=== PATIENT | female | born 2000 | race Caucasian/White ===

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

== ENCOUNTER 2018-01-25 20:50 | Emergency (ER) | payer OTHER ==
[2018-01-25] MEDS ORDERED: methylPREDNISolone SOD SUCCI 125 MG/2 ML VIAL IV STA (21:00)
[2018-01-25] MEDS ORDERED: SODIUM CHLORIDE 0.9% 500 ML IV ONE (21:00)
[2018-01-25] MEDS ORDERED: FAMOTIDINE 20 MG/2 ML VIAL IV STA (21:00)
[2018-01-25] MEDS ORDERED: diphenhydrAMINE 50 MG/ML 1 ML VIAL IVP STA (21:00)
--- NOTE | 2018-01-25 21:16 | ED ---
Allergic Reaction HPI - General Chief complaint: Allergic Reaction Stated complaint: Allergic rection Time Seen by Provider: 01/25/18 21:00 Source: patient, RN notes reviewed Mode of arrival: ambulatory Limitations: no limitations - History of Present Illness Initial Comments: This is a 17-year-old female presents emergency Department chief complaint ALLERGIC reaction. Patient has multiple known food or drug ALLERGIES. Patient states that approximately 30 minutes prior arrival she was working at [employer] states that she started feeling itchy in her face. Patient states that she has some swelling around her eyes and her throat feels itchy. Patient does have an EpiPen but did not use it. Patient states she is not suicidal symptoms are progressing. She denies any shortness of breath denies any rash on her torso or extremities. Patient does not know what she was exposed to at this time. - Related Data Home Medications Medication Instructions Recorded Confirmed Albuterol Inhaler [Ventolin Hfa 2 puff INHALATION RT-Q4H PRN 08/18/16 08/18/16 Inhaler] Betamethasone Dipropionate 1 applic TOPICAL DAILY 08/18/16 08/18/16 [Diprolene AF 0.05% Cream] Norethindrone-Ethinyl Estrad 1 tab PO DAILY 08/18/16 08/18/16 [Alyacen 1-35-28 Tablet] Previous Rx's Medication Instructions Recorded ALPRAZolam [Xanax] 0.5 mg PO TID PRN #42 tab 08/21/16 DULoxetine HCL [Cymbalta] 30 mg PO DAILY #30 capsule. 08/21/16 diphenhydrAMINE [Benadryl] 50 mg PO QID PRN #20 capsule 01/25/18 predniSONE 50 mg PO DAILY #3 tab 01/25/18 Allergies Allergy/AdvReac Type Severity Reaction Status Date / Time Penicillins Allergy Unknown Unknown Verified 01/25/18 20:58 Sulfa (Sulfonamide Allergy Unknown Unknown Verified 01/25/18 20:58 Antibiotics) lactase [From Dairy Aid] Allergy Rash/Hives Verified 01/25/18 20:58 Milk Containing Products Allergy Unknown Verified 01/25/18 20:58 [Dairy] peanut Allergy Unknown Verified 01/25/18 20:58 shellfish derived [Shellfish] Allergy Unknown Verified 01/25/18 20:58 tree nut [Nut] Allergy Unknown Verified 01/25/18 20:58 Review of Systems ROS Statement: Those systems with pertinent positive or pertinent negative responses have been documented in the HPI. ROS Other: All systems not noted in ROS Statement are negative. Past Medical History Past Medical History: Asthma Additional Past Medical History / Comment(s): eczema History of Any Multi-Drug Resistant Organisms: None Reported Past Surgical History: Adenoidectomy, Tonsillectomy Past Psychological History: Anxiety, Depression Smoking Status: Never smoker Past Alcohol Use History: None Reported Past Drug Use History: None Reported General Exam Limitations: no limitations General appearance: alert, in no apparent distress Head exam: Present: atraumatic, normocephalic, normal inspection Eye exam: Present: normal appearance, PERRL, EOMI. Absent: scleral icterus, conjunctival injection, periorbital swelling ENT exam: Present: normal exam, mucous membranes moist Neck exam: Present: normal inspection, full ROM. Absent: tenderness, meningismus, lymphadenopathy Respiratory exam: Present: normal lung sounds bilaterally. Absent: respiratory distress, wheezes, rales, rhonchi, stridor Cardiovascular Exam: Present: regular rate, normal rhythm, normal heart sounds. Absent: systolic murmur, diastolic murmur, rubs, gallop, clicks Neurological exam: Present: alert, oriented X3, CN II-XII intact Skin exam: Present: warm, dry, intact, normal color. Absent: rash Course Vital Signs 01/25/18 20:56 Temperature 97.9 F Pulse Rate 86 Respiratory 16 Rate Blood Pressure 116/79 O2 Sat by Pulse 99 Oximetry - Reevaluation(s) Reevaluation #1: 01/25/18 22:06 Patient was reevaluated states that she feels improved she has no symptoms of throat swelling, itchiness. Medical Decision Making - Medical Decision Making 17-year-old female presented from it chief complaint ALLERGIC reaction. Patient was given IV Benadryl, Pepcid and Solu-Medrol. Patient has no food ALLERGIES. Patient discharged advised take Benadryl every 6 hours for mental 24 hours and retracts 3 days. Patient will follow-up with his CPAP. Patient has have EpiPen at home. Disposition Clinical Impression: Allergic reaction Disposition: HOME SELF-CARE Condition: Stable Instructions: General Allergic Reaction (ED) Additional Instructions: Please return to the Emergency Department if symptoms worsen or any other concerns. Prescriptions: diphenhydrAMINE [Benadryl] 50 mg PO QID PRN #20 capsule PRN Reason: ALLERGIC symptoms predniSONE 50 mg PO DAILY #3 tab Is patient prescribed a controlled substance at d/c from ED?: No Referrals: Ayden Woods MD [Primary Care Provider] - 1-2 days Time of Disposition: 22:08
[2018-01-25 22:19] VITALS: BP 109/59; PULSE 77; RESP 18; TEMP 98
== END 2018-01-25 22:19 | disposition home or self-care (01) ==
LOC: EC 20:50
DX: T78.40XA Allergy, unspecified, initial encounter (principal); Z88.0 Allergy status to penicillin; Z88.2 Allergy status to sulfonamides; Z91.011 Allergy to milk products; Z91.010 Allergy to peanuts; Z91.013 Allergy to seafood; Z91.018 Allergy to other foods; Z79.3 Long term (current) use of hormonal contraceptives; Z79.899 Other long term (current) drug therapy
CPT/HCPCS: 99283; 96374; 96375 ×2; J1200; J2930

== ENCOUNTER 2018-01-28 20:15 | Emergency (ER) | payer OTHER ==
[2018-01-28 20:21] VITALS: RESP 18
[2018-01-28] MEDS ORDERED: predniSONE 20 MG TAB PO STA (20:37)
[2018-01-28] MEDS ORDERED: diphenhydrAMINE 25 MG CAP PO STA (20:37)
[2018-01-28] MEDS ORDERED: FAMOTIDINE 20 MG TAB PO STA (20:37)
--- NOTE | 2018-01-28 22:02 | ED ---
Allergic Reaction HPI - General Chief complaint: Allergic Reaction Stated complaint: Allergic Reaction Time Seen by Provider: 01/28/18 20:33 Source: patient Mode of arrival: ambulatory Limitations: no limitations - History of Present Illness Initial Comments: Patient is a 17-year-old female who presents with a chief complaint of eye swelling and itching. The patient states that she thinks she is having ALLERGIC reaction to something. The patient states she was seen here on Sunday with similar symptoms. She was given prednisone, Benadryl, and Pepcid in the emergency department. At that time, her symptoms improved and she went home. She did not fill the prescriptions for prednisone and Pepcid. She returns today for the same symptoms. Patient does not identify the inciting incident. There are no aggravating or alleviating factors. Patient breath, trouble breathing, trouble swallowing. Reaction is localized to the eyes. - Related Data Home Medications Medication Instructions Recorded Confirmed Dextroamphetamine/Amphetamine 10 mg PO DAILY 01/28/18 01/28/18 [Adderall] Loratadine [Claritin] 10 mg PO DAILY PRN 01/28/18 01/28/18 Previous Rx's Medication Instructions Recorded EPINEPHrine [Epipen 2-Abldo] 0.3 mg IM ONCE PRN #2 units 01/28/18 Famotidine [Pepcid] 20 mg PO DAILY #5 tablet 01/28/18 predniSONE 60 mg PO DAILY #6 tab 01/28/18 Allergies Allergy/AdvReac Type Severity Reaction Status Date / Time Penicillins Allergy Unknown Unknown Verified 01/28/18 21:00 Sulfa (Sulfonamide Allergy Unknown Unknown Verified 01/28/18 21:00 Antibiotics) lactase [From Dairy Aid] Allergy Rash/Hives Verified 01/28/18 21:00 Milk Containing Products Allergy Unknown Verified 01/28/18 21:00 [Dairy] peanut Allergy Unknown Verified 01/28/18 21:00 shellfish derived [Shellfish] Allergy Unknown Verified 01/28/18 21:00 tree nut [Nut] Allergy Unknown Verified 01/28/18 21:00 Review of Systems ROS Statement: Those systems with pertinent positive or pertinent negative responses have been documented in the HPI. ROS Other: All systems not noted in ROS Statement are negative. Skin: Reports: pruritus Past Medical History Past Medical History: Asthma Additional Past Medical History / Comment(s): eczema History of Any Multi-Drug Resistant Organisms: None Reported Past Surgical History: Adenoidectomy, Tonsillectomy Past Psychological History: Anxiety, Depression Smoking Status: Never smoker Past Alcohol Use History: None Reported Past Drug Use History: None Reported General Exam Limitations: no limitations General appearance: alert, in no apparent distress Head exam: Present: atraumatic, normocephalic Eye exam: Present: conjunctival injection, periorbital swelling Pupils: Present: normal accommodation. Absent: unequal ENT exam: Present: normal exam, normal oropharynx, mucous membranes moist Neck exam: Present: normal inspection Respiratory exam: Present: normal lung sounds bilaterally. Absent: respiratory distress, wheezes, rales Cardiovascular Exam: Present: regular rate, normal rhythm GI/Abdominal exam: Present: soft. Absent: distended, tenderness Rectal exam: Present: deferred Extremities exam: Present: normal inspection Back exam: Present: normal inspection Neurological exam: Present: alert, oriented X3 Psychiatric exam: Present: normal affect, normal mood Skin exam: Present: warm, dry, intact Course Vital Signs 01/28/18 01/28/18 20:18 21:15 Temperature 97.9 F Pulse Rate 91 81 Respiratory 18 18 Rate Blood Pressure 122/69 124/86 O2 Sat by Pulse 98 100 Oximetry Medical Decision Making - Medical Decision Making Patient presents with chief complaint of an ALLERGIC reaction. On initial evaluation, vitals are stable, patient is in no acute distress. Reaction appears to be limited to swelling of the eyes. Patient denies any shortness of breath, trouble swallowing, trouble breathing. Patient was given Benadryl, steroids, and Pepcid. Over a period of observation in the emergency department , the patient's symptoms began to improve. At this time, she is stable for discharge. Patient was again given prescriptions for prednisone, and Pepcid. She states she has Benadryl at home. Patient states she has EpiPen at home however she was written a prescription in case she can't find them. Conversation with the patient reveals that she has been using eczema cream mainly around her eyes and this seems to be consistent with her reaction. Patient was instructed to stop using that cream. At this time, patient is stable, she is appropriate for discharge and outpatient management. Patient was given exposes signs and symptoms that should prompt return visit to the emergency department. Patient was instructed on use of an EpiPen. Disposition Clinical Impression: Urticaria, Allergic reaction Disposition: HOME SELF-CARE Condition: Good Prescriptions: EPINEPHrine [Epipen 2-Baldo] 0.3 mg IM ONCE PRN #2 units PRN Reason: Allergic Reaction Famotidine [Pepcid] 20 mg PO DAILY #5 tablet predniSONE 60 mg PO DAILY #6 tab Is patient prescribed a controlled substance at d/c from ED?: No Referrals: Ayden Woods MD [Primary Care Provider] - 1-2 days
[2018-01-28 22:13] VITALS: BP 118/73; PULSE 75; TEMP 98.4
== END 2018-01-28 22:13 | disposition home or self-care (01) ==
LOC: EC 20:15
DX: L50.0 Allergic urticaria (principal); Z79.899 Other long term (current) drug therapy; Z88.0 Allergy status to penicillin; Z88.2 Allergy status to sulfonamides; Z91.010 Allergy to peanuts; Z91.011 Allergy to milk products; Z91.013 Allergy to seafood; Z91.018 Allergy to other foods
CPT/HCPCS: 99283; J7512

== ENCOUNTER → 2018-02-26 | Outpatient (CLI) | payer OTHER ==
--- NOTE | 2018-02-26 08:07 | US ---
EXAMINATION TYPE: US abdomen complete DATE OF EXAM: 02/26/2018 COMPARISON: CT abdomen and pelvis 2007. CLINICAL HISTORY: R94.5 Abnormal results of liver function studies. abnormal labs. Lower abdomen idalia n. NPO EXAM MEASUREMENTS: Liver Length: 13.2 cm Gallbladder Wall: 0.2 cm CBD: 0.3 cm CHD: 0.3 cm Spleen: 10.4 cm Right Kidney: Unable to measure due to bowel gas Left Kidney: 10.6 x 3.5 x 5.0 cm Pancreas: wnl Liver: wnl Gallbladder: wnl, folds seen LLD Evidence for sonographic Álvarez's sign: neg CBD: wnl CHD: wnl Spleen: wnl Right Kidney: Inferior pole obscured by bowel gas, scanned both supine and LLD Left Kidney: wnl Upper IVC: wnl Abd Aorta: Mid portion obscured by overlying bowel gas, portions seen appear wnl The liver is homogenous. The intrahepatic portion of the IVC and visualized proximal, mid, or distal abdominal aorta are within normal limits. There is no evidence of cholelithiasis. Common bile duct is unremarkable. The visualized portions of the pancreas are homogenous. The spleen is unremarkabl e. Kidneys are symmetric and free of hydronephrosis. No renal lesions are seen. IMPRESSION: No worrisome intrahepatic mass or intrahepatic ductal dilatation is identified. Slightly suboptimal study without suspicious findings seen.
== END | disposition home or self-care (01) ==
LOC: RADUSWWP 07:27
PROVIDERS: ATTEND Family Medicine
DX: R94.5 Abnormal results of liver function studies (principal)
CPT/HCPCS: 76700

== ENCOUNTER 2018-03-08 13:27 | Inpatient (IN) | payer MEDICAID, OTHER ==
[2018-03-08 15:15] LABS: Amphetamine Screen,Urine Not Detected (NotDetected); Barbiturate Screen,Urine Not Detected (NotDetected); Benzodiazepines Screen,Urine Detected (NotDetected); Cocaine Screen,Urine Not Detected (NotDetected); Methadone Screen, Urine Not Detected (NotDetected); Opiate Screen,Urine Not Detected (NotDetected); Oxycodone Screen, Urine Not Detected (NotDetected); Phencyclidine Screen,Urine Not Detected (NotDetected); Tricyclic Antidepressant,Urine Not Detected (NotDetected); Urn Cannabinoid Scrn Not Detected (NotDetected)
--- NOTE | 2018-03-08 15:34 | ED ---
General Adult HPI - General Chief complaint: Psychiatric Symptoms Stated complaint: Mental Health Time Seen by Provider: 03/08/18 14:48 Source: patient, RN notes reviewed Mode of arrival: ambulatory Limitations: no limitations - History of Present Illness Initial comments: Patient's a 17-year-old female presented to the emergency room today with her mother, with a chief complaint of needing a psychiatric evaluation. Patient does admit that her last 3 months she's been having thoughts of suicide. She states that currentlydoes not have a specific plan but in the past when she's been more and a "break" she is thought about just taking a bunch of pills. She denies any homicidal thoughts or plans. Denies any visual or auditory hallucinations. Denies any other physical complaints. Patient denies any recent fever, chills, shortness of breath, chest pain, back pain, abdominal pain , nausea or vomiting, numbness or tingling, headaches or visual changes, or any other complaints. - Related Data Home Medications Medication Instructions Recorded Confirmed Loratadine [Claritin] 10 mg PO DAILY PRN 01/28/18 03/08/18 ALPRAZolam [Xanax] 0.5 mg PO BID PRN 03/08/18 03/08/18 Albuterol Inhaler [Ventolin Hfa 1 - 2 puff INHALATION RT-Q6H PRN 03/08/18 Inhaler] Previous Rx's Medication Instructions Recorded EPINEPHrine [Epipen 2-Baldo] 0.3 mg IM ONCE PRN #2 units 01/28/18 Allergies Allergy/AdvReac Type Severity Reaction Status Date / Time Penicillins Allergy Unknown Unknown Verified 03/08/18 14:58 Sulfa (Sulfonamide Allergy Unknown Unknown Verified 03/08/18 14:58 Antibiotics) lactase [From Dairy Aid] Allergy Rash/Hives Verified 03/08/18 14:58 Milk Containing Products Allergy Unknown Verified 03/08/18 14:58 [Dairy] peanut Allergy Unknown Verified 03/08/18 14:58 shellfish derived [Shellfish] Allergy Unknown Verified 03/08/18 14:58 tree nut [Nut] Allergy Unknown Verified 03/08/18 14:58 Review of Systems ROS Statement: Those systems with pertinent positive or pertinent negative responses have been documented in the HPI. ROS Other: All systems not noted in ROS Statement are negative. Past Medical History Past Medical History: Asthma Additional Past Medical History / Comment(s): eczema History of Any Multi-Drug Resistant Organisms: None Reported Past Surgical History: Adenoidectomy, Tonsillectomy Past Psychological History: Anxiety, Depression Smoking Status: Never smoker Past Alcohol Use History: None Reported Past Drug Use History: None Reported General Exam - General Exam Comments Initial Comments: General: The patient is awake and alert, in no distress, and does not appear acutely ill. Eye: Pupils are equal, round and reactive to light, extra-ocular movements are intact. No nystagmus. There is normal conjunctiva bilaterally. No signs of icterus. Ears, nose, mouth and throat: There are moist mucous membranes and no oral lesions. Neck: The neck is supple, there is no tenderness or JVD. Cardiovascular: There is a regular rate and rhythm. No murmur, rub or gallop is appreciated. Respiratory: Lungs are clear to auscultation, respirations are non-labored, breath sounds are equal. No wheezes, stridor, rales, or rhonchi. Musculoskeletal: Normal ROM, no tenderness. Strength 5/5. Sensation intact. Neurological: A&O x 3. CN II-XII intact, There are no obvious motor or sensory deficits. Coordination appears grossly intact. Speech is normal. Skin: Skin is warm and dry and no rashes or lesions are noted. Psychiatric: Cooperative Limitations: no limitations Course Vital Signs 03/08/18 13:44 Temperature 98.2 F Pulse Rate 102 H Respiratory 18 Rate Blood Pressure 107/75 O2 Sat by Pulse 99 Oximetry Medical Decision Making - Medical Decision Making Patient seen in the emergency room by [facility] and recommended admission. Patient is willing to sign herself in. - Lab Data Lab Results 03/08/18 03/08/18 Range/Units 14:57 14:57 Urine HCG, Qual Not Detected (Not Detectd) Urine Opiates Screen Not Detected (NotDetected) Ur Oxycodone Screen Not Detected (NotDetected) Urine Methadone Screen Not Detected (NotDetected) Ur Propoxyphene Screen Not Detected (NotDetected) Ur Barbiturates Screen Not Detected (NotDetected) U Tricyclic Antidepress Not Detected (NotDetected) Ur Phencyclidine Scrn Not Detected (NotDetected) Ur Amphetamines Screen Not Detected (NotDetected) U Methamphetamines Scrn Not Detected (NotDetected) U Benzodiazepines Scrn Detected H (NotDetected) Urine Cocaine Screen Not Detected (NotDetected) U Marijuana (THC) Screen Not Detected (NotDetected) Disposition Clinical Impression: Suicidal ideation Disposition: TRANSFER TO PSYCH HOSP/UNIT Condition: Stable Is patient prescribed a controlled substance at d/c from ED?: No Referrals: Ayden Woods MD [Primary Care Provider] - 1-2 days
[2018-03-08 18:13] VITALS: BMI 24.4
[2018-03-08] MEDS ORDERED: ACETAMINOPHEN TAB 325 MG TAB PO PRN (21:00)
[2018-03-08] MEDS ORDERED: MAGNESIUM HYDROXIDE 2,400 MG/10 ML CUP PO PRN (21:00)
[2018-03-08] MEDS ORDERED: LORazepam 0.5 MG TAB PO PRN (21:00)
[2018-03-08] MEDS ORDERED: MAG HYDROX/AL HYDROX/SIMETH 30 ML CUP PO PRN (21:00)
[2018-03-08] MEDS ORDERED: ALBUTEROL INHALER 60 PUFF/8 GM INHALER INHALATION PRN (21:02)
[2018-03-08] MEDS ORDERED: LORATADINE 10 MG TAB PO PRN (21:02)
[2018-03-09 09:39] LABS: ALT 27 U/L (9-52); AST 25 U/L (14-36); Albumin 4.5 g/dL (3.5-5.0); Alkaline Phosphatase 59 U/L (38-126); Anion Gap 9 mmol/L; Blood Urea Nitrogen 7 mg/dL (7-17); Calcium 9.7 mg/dL (8.4-10.2); Carbon Dioxide 25 mmol/L (22-30); Chloride 107 mmol/L (98-107); Glucose 84 mg/dL (74-99); Sodium 141 mmol/L (137-145); Total Bilirubin 0.8 mg/dL (0.2-1.3); Total Protein 7.7 g/dL (6.3-8.2)
[2018-03-09 09:45] LABS: Basophils % (A) 1 %; Eosinophils # (A) 0.4 k/uL (0-0.7); Eosinophils % (A) 10 %; HGB 13.3 gm/dL (11.4-16.0); Lymphocytes # (A) 1.6 k/uL (1.0-4.8); Lymphocytes % (A) 39 %; MCH 28.5 pg (25.0-35.0); MCHC 32.5 g/dL (31.0-37.0); MCV 87.5 fL (80.0-100.0); Mean Platelet Volume 8.6; Monocytes # (A) 0.4 k/uL (0-1.0); Monocytes % (A) 10 %; Neutrophils # (A) 1.6 k/uL (1.3-7.7); Neutrophils % (A) 37 %; Platelet Count 142 k/uL (150-450); RBC 4.69 m/uL (3.80-5.40); RDW 12.6 % (11.5-15.5); WBC 4.2 k/uL (4.0-11.0)
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
[2018-03-09 15:45] LABS: Appearance,Urine Cloudy (Clear); Bacteria,Urine Rare /hpf; Bilirubin,Urine Negative (Negative); Blood,Urine Trace (Negative); Color,Urine Yellow; Glucose,Urine (UA) Negative (Negative); Ketones,Urine Negative (Negative); Leukocyte Esterase,Urine Small (Negative); Mucus,Urine Many /hpf; Nitrite,Urine Negative (Negative); Protein,Urine Trace (Negative); RBC,Urine 3 /hpf (0-5); Specific Gravity,Urine 1.012 (1.001-1.035); Squamous Epithelial Cell,Urine 4 /hpf (0-4); Urobilinogen,Urine <2.0 mg/dL (<2.0); WBC,Urine 6 /hpf (0-5)
--- NOTE | 2018-03-09 20:41 | CONS ---
CONSULTATION DATE OF CONSULTATION: 03/09/2018. REASON FOR CONSULTATION: Medical management and H and P expressed by Dr. Jimenez. CONSULTATION: This is a 17-year-old patient who follows with Dr. Woods. The patient has a diagnosis of major depression, had been taking medications, but decided to stop it about a year ago. The patient is getting more and more depressed, does not feel like doing much. It has affected her appetite a bit. Sleep pattern is affected, feeling run down. The patient presented to the ER. She has been having suicidal ideation. Denies any obvious hallucinations. Denies any infectious complaints. She was admitted to the psych unit. The patient was started on Zyprexa and Zoloft. REVIEW OF SYSTEMS: CONSTITUTIONAL: Tired. HEENT: None. RESPIRATORY: None. CARDIOVASCULAR: None. GASTROINTESTINAL: None. GENITOURINARY: None. MUSCULOSKELETAL: None. DERMATOLOGICAL: Eczema. HEMATOLOGIC: None. LYMPHATIC: None. PSYCHIATRY: Depression, anxiety. NEUROLOGICAL: None. PAST MEDICAL HISTORY: Major depression, asthma, eczema. PAST SURGICAL HISTORY: Adenoidectomy, tonsillectomy. SOCIAL HISTORY: No smoking. No alcohol. No recreational drugs. The patient lives with her mother, going to local [employer] for early education. FAMILY HISTORY: Thyroid disorder and Seema's disease. HOME MEDICATIONS: 1. Ventolin HFA 1 or 2 puffs every 6 hours p.r.n. 2. Claritin 10 mg daily p.r.n. 3. EpiPen p.r.n. 4. Xanax 0.5 p.o. b.i.d. p.r.n. ALLERGIES: To PENICILLIN, SULFA, LACTOSE, MILK, PEANUTS, SHELLFISH, TREE NUTS. EXAMINATION: VITAL SIGNS: On presentation, temperature 98.2 pulse 102, respirations 18, blood pressure 107/75, pulse 99% on room air. GENERAL APPEARANCE: Average built, sitting up, a bit anxious-appearing. EYES: Pupils equal. Conjunctivae normal. HEENT: External appearance of nose and ears normal. Oral cavity normal. NECK: JVD not raised. Mass not palpable. RESPIRATORY: Effort normal. LUNGS: Fair air entry. CARDIOVASCULAR: First and second heart sounds normal. No edema. ABDOMEN: Soft, nontender. Liver and spleen not palpable. LYMPHATIC: No lymph node palpable in neck or axillae. PSYCHIATRY: Alert and oriented x3. Mood and affect anxious-appearing. NEUROLOGICAL: Pupils equal. Cranial nerves grossly intact. Power and sensation grossly intact. INVESTIGATIONS: White count 4.2, hemoglobin 13.3. Potassium 4.0, BUN and creatinine are normal. Urine hCG not detected. Urine drug screen positive for benzodiazepine. ASSESSMENT: 1. Intermittent asthma, controlled. 2. Chronic eczema/atopic dermatitis, controlled. 3. Panic attacks with agoraphobia. 4. Major depression, recurrent. PLAN: I had a lengthy talk with the patient, talked about different modalities to keep herself busy. The patient does do yoga and meditation and does try to do frequently. She was taught this at [facility]. Her asthma is otherwise well controlled and may use albuterol p.r.n. Upon discharge, should follow up with her family doctor. Thank you, Dr. Jimenez. MIRANDA / LIGIA: [id number] /
[2018-03-09] MEDS ORDERED: OLANZapine 2.5 MG TAB PO SCH (21:00)
[2018-03-10] MEDS: SERTRALINE 25 MG TAB PO SCH (09:10)
--- NOTE | 2018-03-10 15:35 | P.PN ---
Progress Note - Text Progress Note Date: 03/10/18 IDENTIFICATION DATA: 17 -year-old male admitted through emergency department voluntarily for depression, anxiety and suicidal ideations. INTERVAL HISTORY: The patient has been cooperative with medication as well as other treatment modalities, appropriately socializing with peers. Today agreed with being interviewed; Reports feeling better today. denied side effects with medications, Reports good sleep and appetite. MENTAL STATUS EXAMINATION: The patient is alert and oriented 3 and in no apparent distress. Motor and speech behaviors are within normal limits. Mood is "BETTER" and affect is appropriate. thought processes linear thought content is negative for suicidal or homicidal ideation. Denies current auditory or visual hallucinations. insight and judgment are improving. ASSESSMENT AND PLAN: Will increase the dose of her zyprexa to 5mg po qhs. Continue Zoloft and titrate as needed.
[2018-03-10] MEDS: OLANZapine 5 MG TAB PO SCH (20:18)
[2018-03-11] MEDS: SERTRALINE 25 MG TAB PO SCH (08:28)
--- NOTE | 2018-03-11 13:52 | P.PN ---
Progress Note - Text Progress Note Date: 03/11/18 Interval History: Patient is a 17-year-old female who is admitted secondary to increasing symptoms of depression and anxiety as well as suicidal thoughts. Patient states that over the last 3 months her symptoms have increased and she is been having panic attacks 3 or more times a day, has not been leaving the house has not been talking with anyone and cannot identify a precipitant. Patient states that she had suicidal thoughts with a plan to overdose. Patient states that she is not been on medication for some time she thinks about a year and her last medication was Cymbalta. She hasn't been seen in over one year for therapy and was being seen at [facility]. Patient states that she had a overdose attempt when she was 10 years of age. Patient states that she's been in the hospital and restarted on medications her sleep has improved is been a decrease in her anxiety as well as she is no longer feeling suspicious and paranoid. She would not longer reports any suicidal thoughts. Mental Status: Appearance/Attitude: Patient is casually dressed, makes good eye contact and was cooperative. Behavior: Patient does not exhibit any psychomotor agitation or retardation. Speech/Language: Patient's speech was spontaneous of normal volume and rhythm and she is coherent Thought Process: Patient was goal-directed there is no evidence of loose association or flight of ideas Thought Content: Patient denied any auditory or visual hallucinations no paranoid or delusional ideation was elicited. Patient reports that she is feeling less anxious and sleeping well. She and I discussed her relationships with friends and how it is an all or none relationship, either liking them intensely or disliking them intensely. Patient states she's been attending groups and activities. Suicidal/Homicidal Ideation: Patient denies any current suicidal or homicidal ideation Sensorium/Cognition: Patient is alert and oriented to person, place, and time and her Recent and remote memory are grossly intact Mood/Affect: Patient's mood is slightly anxious and depressed and her affect is appropriate to her mood Insight/Judgment: Patient's insight and judgment are fair Assessment: Patient has been attending groups and activities states that her sleep is improving and that she is less anxious and less paranoid. Patient continues to feel depressed but no longer is having any suicidal thoughts. She reports that she is tolerating the medications well without side effects. Plan: Patient continue on Zyprexa 5 mg at bedtime and will increase her Zoloft to 50 mg daily to target her symptoms of depression and anxiety. Patient continues to require hospitalization to further stabilize her mood.
[2018-03-11] MEDS: OLANZapine 5 MG TAB PO SCH (20:24)
[2018-03-12] MEDS: SERTRALINE 50 MG TAB PO SCH (08:54)
--- NOTE | 2018-03-12 12:37 | P.PN ---
Progress Note - Text Progress Note Date: 03/12/18 Interval History: Patient is a 17-year-old female who reports that she is feeling more optimistic today and states that the family meeting with her mother went well yesterday and that they are both considering going to counseling together to improve their relationship. She states that she is feeling less anxious and notices this because she is not fidgeting with her hands when she is sitting. She states that she has been eating fairly well but has been feeling slightly lightheaded in the morning. She says that she is sleeping at night and notices that her depression is improving. She reported no suicidal thoughts Mental Status: Appearance/Attitude: Patient is casually dressed, makes good eye contact and was cooperative. Behavior: Patient does not exhibit any psychomotor agitation or retardation. Speech/Language: Patient's speech was spontaneous of normal volume and rhythm and she is coherent. Thought Process: Patient is goal-directed there is no evidence of loose association or flight of ideas Thought Content: Patient denies any auditory or visual hallucinations no delusions or paranoid ideation or elicited. Patient reports that she is feeling more optimistic, states that she is feeling less anxious and notices that she is not fidgeting and playing with her hands when she is sitting in groups. She states that she slept well last night and her appetite is good. Patient does complain of feeling somewhat lightheaded in the morning. Suicidal/Homicidal Ideation: Patient denies any current suicidal or homicidal ideation Sensorium/Cognition: She is alert and oriented to person, place, and time and her recent and remote memory are grossly intact Mood/Affect: Patient's mood is less depressed and less anxious and her affect is appropriate to her mood Insight/Judgment: Patient's insight and judgment are fair Assessment: Patient states that the family meeting went well and she and her mother considering going to counseling together to improve the relationship. Patient notices that she is feeling calm her and not fidgeting as much when she is sitting as well as feeling more optimistic about the future. Patient states that she's been attending groups and activities. She does complain of some lightheadedness in the morning and her blood pressure is slightly lower than it was on admission. She reported no other side effects from the medications and feels they've been beneficial. Plan: Patient continue on Zoloft 50 mg daily and Zyprexa 5 mg at bedtime. Should the patient continues to report feeling lightheaded I discussed with her decreasing the Zyprexa to 2-1/2 mg at bedtime. Patient and I discussed discharge on and she was agreeable with this plan.
[2018-03-12] MEDS: OLANZapine 5 MG TAB PO SCH (20:50)
[2018-03-13 07:33] VITALS: TEMP 98
[2018-03-13] MEDS: SERTRALINE 50 MG TAB PO SCH (07:54)
--- NOTE | 2018-03-13 16:46 | P.PN ---
Progress Note - Text Progress Note Date: 03/13/18 Interval History: Patient is a 17-year-old female who was seen this morning she states that she continues to feel optimistic, states she has not had any panic attacks and her anxiety level is much reduced. She states that she continues to not have to fidget with her hands. Patient states that she is sleeping well and that she and her mother have continued to have good conversations on the phone. She stated that she is not feeling as lightheaded or dizzy this morning and does not feel that the Zyprexa and needs to be adjusted. She reports no further suicidal thoughts and states she is much less irritable. Mental Status: Appearance/Attitude: Patient is casually dressed, makes good eye contact and was cooperative. Behavior: Patient does not exhibit any psychomotor agitation or retardation. Speech/Language: Patient's speech is spontaneous of normal volume and rhythm and she is coherent Thought Process: Patient is goal-directed there is no evidence of loose association or flight of ideas Thought Content: Patient denies any auditory or visual hallucinations and no delusions or paranoid ideation or elicited. Patient states that she's feeling optimistic much less irritable and has not had any panic attacks while on the unit and is now longer fidgeting with her hands. She states that she is sleeping well and eating well. She reported that she is no longer feeling dizzy and lightheaded and doesn't think that the medications need to be adjusted. Suicidal/Homicidal Ideation: Patient denies any current suicidal or homicidal ideation Sensorium/Cognition: Patient is alert and oriented to person, place, and time and her recent and remote memory are grossly intact. Mood/Affect: Patient states her mood is more optimistic she is no longer feeling irritable or anxious and her affect is appropriate Insight/Judgment: Patient's insight and judgment are intact Assessment: Patient reports that she is doing much better no longer feeling depressed is more optimistic and states that she has not had any panic attacks and is no longer feeling anxious. Patient states side effect of dizziness and lightheadedness have disappeared this morning and she feels that the Zyprexa is been helpful and does not wish to be changed. Patient states she is sleeping and eating well and no longer has any suicidal thoughts. Plan: Patient will continue on Zoloft 50 mg and Zyprexa 5 mg at bedtime she and I discussed discharge for tomorrow and the patient was agreeable with the plan.
[2018-03-14 07:18] VITALS: BP 101/67; PULSE 115; RESP 18
[2018-03-14] MEDS: SERTRALINE 50 MG TAB PO SCH (08:44)
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
== END 2018-03-14 17:13 | disposition home or self-care (01) | DRG 885 ==
LOC: EC 13:27 → 3MHU 17:27
PROVIDERS: ADMIT Psychiatry & Neurology Psychiatry; ATTEND Psychiatry & Neurology Psychiatry
DX: F33.1 Major depressive disorder, recurrent, moderate (principal); R45.851 Suicidal ideations; Z91.5 Personal history of self-harm; J45.20 Mild intermittent asthma, uncomplicated; L20.9 Atopic dermatitis, unspecified; N80.9 Endometriosis, unspecified; B00.9 Herpesviral infection, unspecified; F40.01 Agoraphobia with panic disorder; Z79.899 Other long term (current) drug therapy; Z91.419 Personal history of unspecified adult abuse; Z88.2 Allergy status to sulfonamides; Z91.011 Allergy to milk products; Z91.018 Allergy to other foods; Z91.010 Allergy to peanuts; Z88.0 Allergy status to penicillin; Z91.013 Allergy to seafood; Z65.3 Problems related to other legal circumstances; Z81.8 Family history of other mental and behavioral disorders
CPT/HCPCS: 80053; 80306; 81001; 81025; 82075; 84443; 85025; 99285

== ENCOUNTER 2018-09-25 19:16 | Emergency (ER) | payer BC, OTHER ==
[2018-09-25 19:33] VITALS: BP 108/61; RESP 22; TEMP 98.4
[2018-09-25] MEDS ORDERED: IPRATROPIUM-ALBUTEROL 3 ML NEB INHALATION STA (19:42)
[2018-09-25] MEDS ORDERED: methylPREDNISolone SOD SUCCI 125 MG/2 ML VIAL IV STA (19:42)
[2018-09-25] MEDS ORDERED: SODIUM CHLORIDE 0.9% 1,000 ML IV ONE (19:42)
--- NOTE | 2018-09-25 19:49 | ED ---
URI HPI - General Chief Complaint: Upper Respiratory Infection Stated Complaint: Poss pneumonia Time Seen by Provider: 09/25/18 19:35 Source: patient, RN notes reviewed Mode of arrival: ambulatory Limitations: no limitations - History of Present Illness Initial Comments: 18-year-old female presents emergency Department chief complaint cough congestion. Patient states symptoms started over the last 2 days. She reports no fever at home. She has tried multiple treatments today with minimal relief. She does have underlying asthma but states that she has not had any issues and she was a teenager. Patient states her cough is mildly productive she does admit to some sinus congestion sinus pressure. No sick contacts. Patient denies any joint pain, or stiffness denies neck pain or neck stiffness. - Related Data Home Medications Medication Instructions Recorded Confirmed Loratadine [Claritin] 10 mg PO DAILY PRN 01/28/18 09/25/18 Albuterol Inhaler [Ventolin Hfa 1 - 2 puff INHALATION RT-Q6H PRN 03/08/18 Inhaler] Previous Rx's Medication Instructions Recorded Azithromycin [Zithromax Z-pack] 0 mg PO DIRECTED #1 pack 09/25/18 predniSONE 50 mg PO DAILY #5 tab 09/25/18 Allergies Allergy/AdvReac Type Severity Reaction Status Date / Time Penicillins Allergy Unknown Rash/Hives Verified 09/25/18 20:15 Sulfa (Sulfonamide Allergy Unknown Rash/Hives Verified 09/25/18 20:15 Antibiotics) lactase [From Dairy Aid] Allergy Rash/Hives Verified 09/25/18 20:15 Milk Containing Products Allergy Rash/Hives Verified 09/25/18 20:15 [Dairy] peanut Allergy Anaphylaxis Verified 09/25/18 20:15 shellfish derived [Shellfish] Allergy Anaphylaxis Verified 09/25/18 20:15 tree nut [Nut] Allergy Anaphylaxis Verified 09/25/18 20:15 Review of Systems ROS Statement: Those systems with pertinent positive or pertinent negative responses have been documented in the HPI. ROS Other: All systems not noted in ROS Statement are negative. Past Medical History Past Medical History: Asthma Additional Past Medical History / Comment(s): eczema, recent kidney and liver tests due to abnormal labs and pain. History of Any Multi-Drug Resistant Organisms: None Reported Past Surgical History: Adenoidectomy, Tonsillectomy Additional Past Surgical History / Comment(s): D&C Past Anesthesia/Blood Transfusion Reactions: No Reported Reaction Past Psychological History: Anxiety, Depression Smoking Status: Never smoker Past Alcohol Use History: None Reported Past Drug Use History: None Reported - Past Family History Mother Family Medical History: Thyroid Disorder Additional Family Medical History / Comment(s): Seema's disease. Father Family Medical History: Coronary Artery Disease (CAD) General Exam Limitations: no limitations General appearance: alert, in no apparent distress Head exam: Present: atraumatic, normocephalic, normal inspection Eye exam: Present: normal appearance, PERRL, EOMI. Absent: scleral icterus, conjunctival injection, periorbital swelling ENT exam: Present: normal exam, normal oropharynx, mucous membranes moist, TM's normal bilaterally, normal external ear exam Neck exam: Present: normal inspection. Absent: tenderness, meningismus, lymphadenopathy Respiratory exam: Present: wheezes. Absent: normal lung sounds bilaterally, respiratory distress, rales, stridor Cardiovascular Exam: Present: normal rhythm, tachycardia, normal heart sounds. Absent: systolic murmur, diastolic murmur, rubs, gallop, clicks Neurological exam: Present: alert, oriented X3, CN II-XII intact Skin exam: Present: warm, dry, intact, normal color. Absent: rash Course Vital Signs 09/25/18 09/25/18 09/25/18 19:28 20:18 20:33 Temperature 98.4 F Pulse Rate 124 H 120 H 120 H Respiratory 22 Rate Blood Pressure 108/61 O2 Sat by Pulse 98 Oximetry Medical Decision Making - Medical Decision Making 18-year-old female presented for shortness breath, cough and congestion influenza, chest x-ray unremarkable. Patient has acute asthmatic bronchitis. Patient will be discharged with antiemetics and steroids. Patient continue albuterol treatment at home. Return parameters discussed. - Lab Data Result diagrams: 09/25/18 20:00 09/25/18 20:00 Lab Results 09/25/18 09/25/18 09/25/18 Range/Units 20:00 20:00 20:00 WBC 8.0 (4.0-11.0) k/uL RBC 4.57 (3.80-5.40) m/uL Hgb 13.0 (11.4-16.0) gm/dL Hct 39.9 (34.0-46.0) % MCV 87.4 (80.0-100.0) fL MCH 28.5 (25.0-35.0) pg MCHC 32.6 (31.0-37.0) g/dL RDW 13.3 (11.5-15.5) % Plt Count 188 (150-450) k/uL Neutrophils % 60 % Lymphocytes % 19 % Monocytes % 6 % Eosinophils % 13 % Basophils % 1 % Neutrophils # 4.8 (1.3-7.7) k/uL Lymphocytes # 1.5 (1.0-4.8) k/uL Monocytes # 0.5 (0-1.0) k/uL Eosinophils # 1.0 H (0-0.7) k/uL Basophils # 0.1 (0-0.2) k/uL Sodium 140 (137-145) mmol/L Potassium 3.9 (3.5-5.1) mmol/L Chloride 108 H (98-107) mmol/L Carbon Dioxide 23 (22-30) mmol/L Anion Gap 9 mmol/L BUN 5 L (7-17) mg/dL Creatinine 0.60 (0.52-1.04) mg/dL Est GFR (CKD-EPI)AfAm >90 (>60 ml/min/1.73 sqM) Est GFR (CKD-EPI)NonAf >90 (>60 ml/min/1.73 sqM) Glucose 80 (74-99) mg/dL Calcium 9.3 (8.4-10.2) mg/dL Influenza Type A RNA Not Detected (Not Detectd) Influenza Type B (PCR) Not Detected (Not Detectd) Disposition Clinical Impression: Asthmatic bronchitis Disposition: HOME SELF-CARE Condition: Stable Instructions (If sedation given, give patient instructions): Upper Respiratory Infection (ED) Additional Instructions: Please return to the Emergency Department if symptoms worsen or any other concerns. Prescriptions: Azithromycin [Zithromax Z-pack] 0 mg PO DIRECTED #1 pack predniSONE 50 mg PO DAILY #5 tab Is patient prescribed a controlled substance at d/c from ED?: No Referrals: Ayden Woods MD [Primary Care Provider] - 1-2 days Time of Disposition: 21:28
[2018-09-25 20:15] LABS: Basophils # (A) 0.1 k/uL (0-0.2); Basophils % (A) 1 %; Eosinophils % (A) 13 %; HCT 39.9 % (34.0-46.0); Lymphocytes # (A) 1.5 k/uL (1.0-4.8); Lymphocytes % (A) 19 %; MCH 28.5 pg (25.0-35.0); MCHC 32.6 g/dL (31.0-37.0); MCV 87.4 fL (80.0-100.0); Mean Platelet Volume 7.6; Monocytes # (A) 0.5 k/uL (0-1.0); Monocytes % (A) 6 %; Neutrophils # (A) 4.8 k/uL (1.3-7.7); Neutrophils % (A) 60 %; Platelet Count 188 k/uL (150-450); RBC 4.57 m/uL (3.80-5.40); RDW 13.3 % (11.5-15.5)
[2018-09-25 20:25] LABS: Anion Gap 9 mmol/L; Blood Urea Nitrogen 5 mg/dL (7-17); Calcium 9.3 mg/dL (8.4-10.2); Carbon Dioxide 23 mmol/L (22-30); Chloride 108 mmol/L (98-107); Glucose 80 mg/dL (74-99); Potassium 3.9 mmol/L (3.5-5.1); Sodium 140 mmol/L (137-145)
--- NOTE | 2018-09-25 21:05 | XR ---
EXAMINATION TYPE: XR chest 2V DATE OF EXAM: 09/25/2018 COMPARISON: 11/01/2009 HISTORY: Cough TECHNIQUE: Frontal and lateral views of the chest are obtained. FINDINGS: Heart and mediastinum are normal. Lungs are clear. Diaphragm is normal. Bony thorax appear s normal. IMPRESSION: Normal chest. No change.
[2018-09-25 21:27] VITALS: PULSE 110
== END 2018-09-25 21:53 | disposition home or self-care (01) ==
LOC: EC 19:16
DX: J45.909 Unspecified asthma, uncomplicated (principal); R00.0 Tachycardia, unspecified; Z88.0 Allergy status to penicillin; Z88.2 Allergy status to sulfonamides; Z91.010 Allergy to peanuts; Z91.011 Allergy to milk products; Z91.013 Allergy to seafood; Z91.018 Allergy to other foods; Z90.89 Acquired absence of other organs
CPT/HCPCS: 36415; 94640; 80048; 85025; 87040; 87502; 71046; 99284; 96374; 96361 ×2; J2930

== ENCOUNTER 2018-11-13 13:34 | Emergency (ER) | payer BC, OTHER ==
[2018-11-13] MEDS ORDERED: ACETAMINOPHEN TAB 500 MG TAB PO STA (13:53)
[2018-11-13] MEDS ORDERED: ONDANSETRON 4 MG/2 ML VIAL IVP STA (13:53)
[2018-11-13] MEDS ORDERED: SODIUM CHLORIDE 0.9% 1,000 ML IV ONE (13:54)
[2018-11-13] MEDS ORDERED: methylPREDNISolone SOD SUCCI 125 MG/2 ML VIAL IV STA (13:56)
--- NOTE | 2018-11-13 13:56 | ED ---
General Adult HPI - General Chief complaint: Shortness of Breath Stated complaint: flu symptoms Time Seen by Provider: 11/13/18 13:35 Source: patient, family, RN notes reviewed Mode of arrival: ambulatory Limitations: no limitations - History of Present Illness Initial comments: This is a 18-year-old female presents to the emergency department complaining of a three-day history of congestion and a cold. Patient states she woke up this morning at about 4 AM and started having difficulty breathing and felt as though she was having an asthma attack. Patient states shortly thereafter she started vomiting and has been unable to keep any food down at this time. Patient denies any abdominal pain she still complains of nausea however. Patient denies any diarrhea. Patient denies any chest pain patient still states she's very short of breath but she denies any fever or chills. Patient denies any lightheadedness dizziness or near syncopal episode. Patient denies any swelling to the legs or calf tenderness. Patient states she's not sexually active and therefore cannot be . - Related Data Home Medications Medication Instructions Recorded Confirmed Loratadine [Claritin] 10 mg PO DAILY PRN 01/28/18 11/13/18 Control (Unknown) 1 tab PO DAILY 11/13/18 11/13/18 Previous Rx's Medication Instructions Recorded Azithromycin [Zithromax Tri-Baldo] 500 mg PO DAILY #3 tab 11/13/18 predniSONE 40 mg PO DAILY #8 tab 11/13/18 Allergies Allergy/AdvReac Type Severity Reaction Status Date / Time Penicillins Allergy Unknown Rash/Hives Verified 11/13/18 13:50 Sulfa (Sulfonamide Allergy Unknown Rash/Hives Verified 11/13/18 13:50 Antibiotics) lactase [From Dairy Aid] Allergy Rash/Hives Verified 11/13/18 13:50 Milk Containing Products Allergy Rash/Hives Verified 11/13/18 13:50 [Dairy] peanut Allergy Anaphylaxis Verified 11/13/18 13:50 shellfish derived [Shellfish] Allergy Anaphylaxis Verified 11/13/18 13:50 tree nut [Nut] Allergy Anaphylaxis Verified 11/13/18 13:50 wheat Allergy Unknown Verified 11/13/18 13:50 Review of Systems ROS Statement: Those systems with pertinent positive or pertinent negative responses have been documented in the HPI. ROS Other: All systems not noted in ROS Statement are negative. Past Medical History Past Medical History: Asthma Additional Past Medical History / Comment(s): eczema, recent kidney and liver tests due to abnormal labs and pain. Celiac disease History of Any Multi-Drug Resistant Organisms: None Reported Past Surgical History: Adenoidectomy, Tonsillectomy Additional Past Surgical History / Comment(s): D&C Past Anesthesia/Blood Transfusion Reactions: No Reported Reaction Past Psychological History: Anxiety, Depression Smoking Status: Never smoker Past Alcohol Use History: None Reported Past Drug Use History: None Reported - Past Family History Mother Family Medical History: Thyroid Disorder Additional Family Medical History / Comment(s): Seema's disease. Father Family Medical History: Coronary Artery Disease (CAD) General Exam - General Exam Comments Initial Comments: GENERAL: Patient is well-developed and well-nourished. Patient is nontoxic and well- hydrated and is in mild distress. ENT: Neck is soft and supple. No significant lymphadenopathy is noted. Oropharynx is clear. Moist mucous membranes. Neck has full range of motion without eliciting any pain. EYES: The sclera were anicteric and conjunctiva were pink and moist. Extraocular movements were intact and pupils were equal round and reactive to light. Eyelids were unremarkable. PULMONARY: Patient has diffuse expiratory wheezing. CARDIOVASCULAR: There is a regular rate and rhythm without any murmurs gallops or rubs. ABDOMEN: Soft and nontender with normal bowel sounds. No palpable organomegaly was noted. There is no palpable pulsatile mass. SKIN: Skin is clear with no lesions or rashes and otherwise unremarkable. NEUROLOGIC: Patient is alert and oriented x3. Cranial nerves II through XII are grossly intact. Motor and sensory are also intact. Normal speech, volume and content. Symmetrical smile. MUSCULOSKELETAL: Normal extremities with adequate strength and full range of motion. No lower extremity swelling or edema. No calf tenderness. LYMPHATICS: No significant lymphadenopathy is noted PSYCHIATRIC: Normal psychiatric evaluation. Limitations: no limitations Course Vital Signs 11/13/18 11/13/18 11/13/18 13:37 14:07 14:21 Temperature 98.1 F Pulse Rate 123 H 120 H 128 H Respiratory 24 Rate Blood Pressure 125/85 O2 Sat by Pulse 98 Oximetry 11/13/18 11/13/18 14:31 14:34 Temperature 98.6 F Pulse Rate 128 H 126 H Respiratory 20 Rate Blood Pressure O2 Sat by Pulse 99 Oximetry Medical Decision Making - Medical Decision Making Chest x-ray shows no acute normalities. Patient is negative for influenza. I will back into the room to re-evaluate the patient after she received steroids and to breathing treatment she sounded considerably better. Patient also stated she felt better. - Lab Data Result diagrams: 11/13/18 14:11 11/13/18 14:11 Lab Results 11/13/18 11/13/18 11/13/18 Range/Units 14:11 14:11 14:11 WBC 8.5 (4.0-11.0) k/uL RBC 4.85 (3.80-5.40) m/uL Hgb 13.6 (11.4-16.0) gm/dL Hct 41.3 (34.0-46.0) % MCV 85.0 (80.0-100.0) fL MCH 28.1 (25.0-35.0) pg MCHC 33.0 (31.0-37.0) g/dL RDW 13.9 (11.5-15.5) % Plt Count 203 (150-450) k/uL Neutrophils % 61 % Lymphocytes % 21 % Monocytes % 6 % Eosinophils % 10 % Basophils % 1 % Neutrophils # 5.2 (1.3-7.7) k/uL Lymphocytes # 1.8 (1.0-4.8) k/uL Monocytes # 0.5 (0-1.0) k/uL Eosinophils # 0.9 H (0-0.7) k/uL Basophils # 0.1 (0-0.2) k/uL Sodium 141 (137-145) mmol/L Potassium 4.0 (3.5-5.1) mmol/L Chloride 107 (98-107) mmol/L Carbon Dioxide 24 (22-30) mmol/L Anion Gap 10 mmol/L BUN 7 (7-17) mg/dL Creatinine 0.85 (0.52-1.04) mg/dL Est GFR (CKD-EPI)AfAm >90 (>60 ml/min/1.73 sqM) Est GFR (CKD-EPI)NonAf >90 (>60 ml/min/1.73 sqM) Glucose 87 (74-99) mg/dL Calcium 9.6 (8.4-10.2) mg/dL Total Bilirubin 0.7 (0.2-1.3) mg/dL AST 22 (14-36) U/L ALT 16 (9-52) U/L Alkaline Phosphatase 76 (38-126) U/L Total Protein 7.8 (6.3-8.2) g/dL Albumin 4.4 (3.5-5.0) g/dL Influenza Type A RNA Not Detected (Not Detectd) Influenza Type B (PCR) Not Detected (Not Detectd) Disposition Clinical Impression: Acute bronchitis with bronchospasm Disposition: HOME SELF-CARE Instructions (If sedation given, give patient instructions): Bronchospasm (ED), Acute Bronchitis (ED) Prescriptions: predniSONE 40 mg PO DAILY #8 tab Azithromycin [Zithromax Tri-Baldo] 500 mg PO DAILY #3 tab Is patient prescribed a controlled substance at d/c from ED?: No Referrals: Adyen Woods MD [Primary Care Provider] - 1-2 days
[2018-11-13] MEDS ORDERED: IPRATROPIUM-ALBUTEROL 3 ML NEB INHALATION STA ×2 (13:57→14:17)
[2018-11-13 14:35] LABS: Basophils # (A) 0.1 k/uL (0-0.2); Basophils % (A) 1 %; Eosinophils # (A) 0.9 k/uL (0-0.7); Eosinophils % (A) 10 %; HCT 41.3 % (34.0-46.0); HGB 13.6 gm/dL (11.4-16.0); Lymphocytes # (A) 1.8 k/uL (1.0-4.8); Lymphocytes % (A) 21 %; MCH 28.1 pg (25.0-35.0); Mean Platelet Volume 8.7; Monocytes # (A) 0.5 k/uL (0-1.0); Monocytes % (A) 6 %; Neutrophils # (A) 5.2 k/uL (1.3-7.7); Neutrophils % (A) 61 %; Platelet Count 203 k/uL (150-450); RBC 4.85 m/uL (3.80-5.40); RDW 13.9 % (11.5-15.5); WBC 8.5 k/uL (4.0-11.0)
[2018-11-13 14:52] LABS: ALT 16 U/L (9-52); AST 22 U/L (14-36); Albumin 4.4 g/dL (3.5-5.0); Alkaline Phosphatase 76 U/L (38-126); Anion Gap 10 mmol/L; Blood Urea Nitrogen 7 mg/dL (7-17); Calcium 9.6 mg/dL (8.4-10.2); Carbon Dioxide 24 mmol/L (22-30); Chloride 107 mmol/L (98-107); Glucose 87 mg/dL (74-99); Sodium 141 mmol/L (137-145); Total Bilirubin 0.7 mg/dL (0.2-1.3); Total Protein 7.8 g/dL (6.3-8.2)
--- NOTE | 2018-11-13 15:08 | XR ---
EXAMINATION TYPE: XR chest 2V DATE OF EXAM: 11/13/2018 COMPARISON: 09/25/2018 TECHNIQUE: PA and lateral views submitted. HISTORY: Difficulty breathing FINDINGS: The lungs are clear and there is no pneumothorax, pleural effusion, or focal pneumonia. No overt fa ilure. Hyperinflation of the lungs and be seen with asthma. IMPRESSION: 1. No acute infiltrate. There is hyperinflation of the lungs which can be seen with asthma correlate clinically.
[2018-11-13 15:39] VITALS: BP 94/57; PULSE 113; RESP 18; TEMP 98.3
== END 2018-11-13 15:40 | disposition home or self-care (01) ==
LOC: EC 13:34
DX: J20.9 Acute bronchitis, unspecified (principal); J45.909 Unspecified asthma, uncomplicated; Z79.3 Long term (current) use of hormonal contraceptives; Z88.0 Allergy status to penicillin; Z88.2 Allergy status to sulfonamides; Z91.013 Allergy to seafood; Z91.011 Allergy to milk products; Z91.018 Allergy to other foods; Z91.010 Allergy to peanuts
CPT/HCPCS: 36415; 94640 ×2; 80053; 85025; 87040; 87502; 71046; 99285; 96374; 96375; 96361 ×2; J2930; J2405

== ENCOUNTER 2018-11-30 03:30 | Emergency (ER) | payer BC, OTHER ==
[2018-11-30 03:40] VITALS: RESP 16; TEMP 97.5
[2018-11-30] MEDS ORDERED: SODIUM CHLORIDE 0.9% 1,000 ML IV STA (04:05)
--- NOTE | 2018-11-30 04:50 | ED ---
Abdominal Pain HPI - General Chief Complaint: Abdominal Pain Stated Complaint: Flank Pain Time Seen by Provider: 11/30/18 04:04 Source: patient Mode of arrival: ambulatory Limitations: no limitations - History of Present Illness Initial Comments: [place] 18-year-old female who presents the emergency department today for evaluation of urinary tract infection and flank pain. Patient reports that she was seen a week and a half ago by her primary care physician and diagnosed with a urinary tract infection, she was prescribed an antibiotic however she noted that her mother is severely ALLERGIC to this antibiotic and she read the side effects of the antibiotic and chose not to take it. Patient reports that she spent 4 days attempting to contact her primary care physician and was not successful doing so until yesterday at which time she was given a written prescription for a new antibiotic, Macrobid. Patient reports she was unable to get the antibiotic filled yesterday. She reports that throughout the night tonight she has had flank pain or worsening ache abdominal pain became concerned that her urinary tract infection made to have traveled to her kidney so she came to the ER for evaluation. - Related Data Home Medications Medication Instructions Recorded Confirmed Loratadine [Claritin] 10 mg PO DAILY PRN 01/28/18 11/13/18 Control (Unknown) 1 tab PO DAILY 11/13/18 11/13/18 Previous Rx's Medication Instructions Recorded Azithromycin [Zithromax Tri-Baldo] 500 mg PO DAILY #3 tab 11/13/18 predniSONE 40 mg PO DAILY #8 tab 11/13/18 Phenazopyridine HCl [Pyridium] 100 mg PO TID #6 tab 11/30/18 Allergies Allergy/AdvReac Type Severity Reaction Status Date / Time Penicillins Allergy Unknown Rash/Hives Verified 11/30/18 03:40 Sulfa (Sulfonamide Allergy Unknown Rash/Hives Verified 11/30/18 03:40 Antibiotics) lactase [From Dairy Aid] Allergy Rash/Hives Verified 11/30/18 03:40 Milk Containing Products Allergy Rash/Hives Verified 11/30/18 03:40 [Dairy] peanut Allergy Anaphylaxis Verified 11/30/18 03:40 shellfish derived [Shellfish] Allergy Anaphylaxis Verified 11/30/18 03:40 tree nut [Nut] Allergy Anaphylaxis Verified 11/30/18 03:40 wheat Allergy Unknown Verified 11/30/18 03:40 Review of Systems ROS Statement: Those systems with pertinent positive or pertinent negative responses have been documented in the HPI. ROS Other: All systems not noted in ROS Statement are negative. Past Medical History Past Medical History: Asthma Additional Past Medical History / Comment(s): eczema, recent kidney and liver tests due to abnormal labs and pain. Celiac disease, endometreosis History of Any Multi-Drug Resistant Organisms: None Reported Past Surgical History: Adenoidectomy, Tonsillectomy Additional Past Surgical History / Comment(s): D&C Past Anesthesia/Blood Transfusion Reactions: No Reported Reaction Past Psychological History: Anxiety, Depression Smoking Status: Never smoker Past Alcohol Use History: None Reported Past Drug Use History: None Reported - Past Family History Mother Family Medical History: Thyroid Disorder Additional Family Medical History / Comment(s): Seema's disease. Father Family Medical History: Coronary Artery Disease (CAD) General Exam - General Exam Comments Initial Comments: Physical Exam GENERAL: Patient is well-developed and well-nourished, pale skin Patient is nontoxic and well-hydrated and is in no distress. HENT: Normocephalic, Atraumatic. EYES: PERRL, EOMI PULMONARY: Unlabored respirations CARDIOVASCULAR: Tachycardic, regular ABDOMEN: Mild tenderness to suprapubic, tenderness to percussion of flank SKIN: Pale : Deferred NEUROLOGIC: Patient is alert and oriented x3. Moving all extremities spontaneously MUSCULOSKELETAL: Normal extremities with adequate strength and full range of motion. No lower extremity swelling or edema. No calf tenderness. PSYCHIATRIC: Normal psychiatric evaluation. Limitations: no limitations Limitations: no limitations Course Vital Signs 11/30/18 11/30/18 03:36 07:08 Temperature 97.5 F L Pulse Rate 115 H 85 Respiratory 16 16 Rate Blood Pressure 97/59 96/64 O2 Sat by Pulse 99 96 Oximetry Medical Decision Making - Medical Decision Making The patient was seen and evaluated history is obtained from the patient Patient is a 18-year-old female with a known urinary tract infection for greater than 10 days for which she has not taken any antibiotics due to concerns that she may have a reaction patient now with worsening pain and pain radiating to the flank Is no leukocytosis the patient is afebrile, tachycardic with no signs of sepsis This does show a urinary tract infection patient was given a single IV dose of Rocephin she will be discharged home to resume her Macrobid. Return precautions were discussed patient was advised follow-up outpatient all questions pertaining care were answered patient was discharged home in stable condition. - Lab Data Result diagrams: 11/30/18 04:11 11/30/18 04:11 Lab Results 11/30/18 11/30/18 11/30/18 Range/Units 04:11 04:11 05:04 WBC 8.9 (4.0-11.0) k/uL RBC 4.31 (3.80-5.40) m/uL Hgb 12.4 (11.4-16.0) gm/dL Hct 37.7 (34.0-46.0) % MCV 87.5 (80.0-100.0) fL MCH 28.8 (25.0-35.0) pg MCHC 32.9 (31.0-37.0) g/dL RDW 13.7 (11.5-15.5) % Plt Count 217 (150-450) k/uL Neutrophils % 61 % Lymphocytes % 26 % Monocytes % 6 % Eosinophils % 5 % Basophils % 1 % Neutrophils # 5.4 (1.3-7.7) k/uL Lymphocytes # 2.3 (1.0-4.8) k/uL Monocytes # 0.5 (0-1.0) k/uL Eosinophils # 0.5 (0-0.7) k/uL Basophils # 0.1 (0-0.2) k/uL Sodium 139 (137-145) mmol/L Potassium 4.3 (3.5-5.1) mmol/L Chloride 107 (98-107) mmol/L Carbon Dioxide 26 (22-30) mmol/L Anion Gap 6 mmol/L BUN 8 (7-17) mg/dL Creatinine 0.62 (0.52-1.04) mg/dL Est GFR (CKD-EPI)AfAm >90 (>60 ml/min/1.73 sqM) Est GFR (CKD-EPI)NonAf >90 (>60 ml/min/1.73 sqM) Glucose 82 (74-99) mg/dL Calcium 9.3 (8.4-10.2) mg/dL Total Bilirubin 0.4 (0.2-1.3) mg/dL AST 21 (14-36) U/L ALT 19 (9-52) U/L Alkaline Phosphatase 73 (38-126) U/L Total Protein 7.1 (6.3-8.2) g/dL Albumin 3.9 (3.5-5.0) g/dL Urine Color Urine Appearance (Clear) Urine pH (5.0-8.0) Ur Specific [place] (1.001-1.035) Urine Protein (Negative) Urine Glucose (UA) (Negative) Urine Ketones (Negative) Urine Blood (Negative) Urine Nitrite (Negative) Urine Bilirubin (Negative) Urine Urobilinogen (<2.0) mg/dL Ur Leukocyte Esterase (Negative) Urine RBC (0-5) /hpf Urine WBC (0-5) /hpf Urine WBC Clumps (None) /hpf Ur Squamous Epith Cells (0-4) /hpf Urine Bacteria (None) /hpf Urine Mucus (None) /hpf Urine HCG, Qual Not Detected (Not Detectd) 11/30/18 Range/Units 05:04 WBC (4.0-11.0) k/uL RBC (3.80-5.40) m/uL Hgb (11.4-16.0) gm/dL Hct (34.0-46.0) % MCV (80.0-100.0) fL MCH (25.0-35.0) pg MCHC (31.0-37.0) g/dL RDW (11.5-15.5) % Plt Count (150-450) k/uL Neutrophils % % Lymphocytes % % Monocytes % % Eosinophils % % Basophils % % Neutrophils # (1.3-7.7) k/uL Lymphocytes # (1.0-4.8) k/uL Monocytes # (0-1.0) k/uL Eosinophils # (0-0.7) k/uL Basophils # (0-0.2) k/uL Sodium (137-145) mmol/L Potassium (3.5-5.1) mmol/L Chloride (98-107) mmol/L Carbon Dioxide (22-30) mmol/L Anion Gap mmol/L BUN (7-17) mg/dL Creatinine (0.52-1.04) mg/dL Est GFR (CKD-EPI)AfAm (>60 ml/min/1.73 sqM) Est GFR (CKD-EPI)NonAf (>60 ml/min/1.73 sqM) Glucose (74-99) mg/dL Calcium (8.4-10.2) mg/dL Total Bilirubin (0.2-1.3) mg/dL AST (14-36) U/L ALT (9-52) U/L Alkaline Phosphatase (38-126) U/L Total Protein (6.3-8.2) g/dL Albumin (3.5-5.0) g/dL Urine Color Yellow Urine Appearance Cloudy H (Clear) Urine pH 7.5 (5.0-8.0) Ur Specific [place] 1.016 (1.001-1.035) Urine Protein 1+ H (Negative) Urine Glucose (UA) Negative (Negative) Urine Ketones Negative (Negative) Urine Blood Moderate H (Negative) Urine Nitrite Negative (Negative) Urine Bilirubin Negative (Negative) Urine Urobilinogen <2.0 (<2.0) mg/dL Ur Leukocyte Esterase Large H (Negative) Urine RBC >182 H (0-5) /hpf Urine WBC >182 H (0-5) /hpf Urine WBC Clumps Many H (None) /hpf Ur Squamous Epith Cells 14 H (0-4) /hpf Urine Bacteria Moderate H (None) /hpf Urine Mucus Few H (None) /hpf Urine HCG, Qual (Not Detectd) Disposition Clinical Impression: Urinary tract infection Disposition: HOME SELF-CARE Condition: Stable Instructions (If sedation given, give patient instructions): Urinary Tract Infection in Women (ED) Prescriptions: Phenazopyridine HCl [Pyridium] 100 mg PO TID #6 tab Is patient prescribed a controlled substance at d/c from ED?: No Referrals: Ayden Woods MD [Primary Care Provider] - 1-2 days
[2018-11-30 05:03] LABS: Basophils # (A) 0.1 k/uL (0-0.2); Basophils % (A) 1 %; Eosinophils # (A) 0.5 k/uL (0-0.7); Eosinophils % (A) 5 %; HCT 37.7 % (34.0-46.0); HGB 12.4 gm/dL (11.4-16.0); Lymphocytes # (A) 2.3 k/uL (1.0-4.8); Lymphocytes % (A) 26 %; MCH 28.8 pg (25.0-35.0); MCHC 32.9 g/dL (31.0-37.0); MCV 87.5 fL (80.0-100.0); Mean Platelet Volume 8.1; Monocytes # (A) 0.5 k/uL (0-1.0); Monocytes % (A) 6 %; Neutrophils # (A) 5.4 k/uL (1.3-7.7); Neutrophils % (A) 61 %; Platelet Count 217 k/uL (150-450); RBC 4.31 m/uL (3.80-5.40); RDW 13.7 % (11.5-15.5); WBC 8.9 k/uL (4.0-11.0)
[2018-11-30 05:18] LABS: ALT 19 U/L (9-52); AST 21 U/L (14-36); Albumin 3.9 g/dL (3.5-5.0); Alkaline Phosphatase 73 U/L (38-126); Anion Gap 6 mmol/L; Blood Urea Nitrogen 8 mg/dL (7-17); Calcium 9.3 mg/dL (8.4-10.2); Carbon Dioxide 26 mmol/L (22-30); Chloride 107 mmol/L (98-107); Glucose 82 mg/dL (74-99); Potassium 4.3 mmol/L (3.5-5.1); Sodium 139 mmol/L (137-145); Total Bilirubin 0.4 mg/dL (0.2-1.3); Total Protein 7.1 g/dL (6.3-8.2)
[2018-11-30 06:51] LABS: Appearance,Urine Cloudy (Clear); Bacteria,Urine Moderate /hpf; Bilirubin,Urine Negative (Negative); Blood,Urine Moderate (Negative); Color,Urine Yellow; Glucose,Urine (UA) Negative (Negative); Ketones,Urine Negative (Negative); Leukocyte Esterase,Urine Large (Negative); Mucus,Urine Few /hpf; Nitrite,Urine Negative (Negative); PH, Urine 7.5 (5.0-8.0); Protein,Urine 1+ (Negative); RBC,Urine >182 /hpf (0-5); Specific Gravity,Urine 1.016 (1.001-1.035); Squamous Epithelial Cell,Urine 14 /hpf (0-4); Urobilinogen,Urine <2.0 mg/dL (<2.0); WBC,Urine >182 /hpf (0-5)
[2018-11-30] MEDS ORDERED: cefTRIAXone IN SWFI 1,000 MG/10 ML SYRINGE IVP STA (06:57)
[2018-11-30 07:09] VITALS: BP 96/64; PULSE 85
== END 2018-11-30 07:08 | disposition home or self-care (01) ==
LOC: EC 03:30
DX: N39.0 Urinary tract infection, site not specified (principal); R00.0 Tachycardia, unspecified; Z88.0 Allergy status to penicillin; Z88.2 Allergy status to sulfonamides; Z91.010 Allergy to peanuts; Z91.011 Allergy to milk products; Z91.013 Allergy to seafood; Z91.018 Allergy to other foods; Z79.3 Long term (current) use of hormonal contraceptives; Z82.49 Family history of ischemic heart disease and other diseases of the circulatory system
CPT/HCPCS: 99283; 96374; 96361; 36415; 80053; 85025; 81001; 81025; J0696

== ENCOUNTER 2019-04-08 22:12 | Emergency (ER) | payer BC, OTHER ==
[2019-04-08 22:17] VITALS: TEMP 97.7
[2019-04-08] MEDS ORDERED: FAMOTIDINE 20 MG/2 ML VIAL IV STA (22:29)
[2019-04-08] MEDS ORDERED: diphenhydrAMINE 50 MG/ML 1 ML VIAL IVP STA (22:29)
[2019-04-08] MEDS ORDERED: methylPREDNISolone SOD SUCCI 125 MG/2 ML VIAL IV STA (22:29)
--- NOTE | 2019-04-08 22:32 | ED ---
General Adult HPI - General Chief complaint: Allergic Reaction Stated complaint: Allergic reaction Time Seen by Provider: 04/08/19 22:24 Source: patient, RN notes reviewed Mode of arrival: wheelchair Limitations: no limitations - History of Present Illness Initial comments: Patient is a pleasant 18-year-old female presenting to the emergency department with concerns for possible ALLERGIC reaction. Patient did try a new gluten-free Poss tonight and feels she may be ALLERGIC to it. Patient has not previously had this brand. Patient does feel some mild itching and swelling in her throat. No swelling of the tongue or eyes or lips. Patient does not feel short of breath in her chest. Patient does not have any rash. Patient has had similar symptoms previously associated with ALLERGIES however has not happened in several years. - Related Data Home Medications Medication Instructions Recorded Confirmed Loratadine [Claritin] 10 mg PO DAILY PRN 01/28/18 04/08/19 Previous Rx's Medication Instructions Recorded predniSONE 20 mg PO BID #10 tab 04/08/19 Allergies Allergy/AdvReac Type Severity Reaction Status Date / Time Penicillins Allergy Unknown Rash/Hives Verified 04/08/19 22:40 Sulfa (Sulfonamide Allergy Unknown Rash/Hives Verified 04/08/19 22:40 Antibiotics) lactase [From Dairy Aid] Allergy Rash/Hives Verified 04/08/19 22:40 Milk Containing Products Allergy Rash/Hives Verified 04/08/19 22:40 [Dairy] peanut Allergy Anaphylaxis Verified 04/08/19 22:40 shellfish derived [Shellfish] Allergy Anaphylaxis Verified 04/08/19 22:40 tree nut [Nut] Allergy Anaphylaxis Verified 04/08/19 22:40 wheat Allergy Unknown Verified 04/08/19 22:40 Review of Systems ROS Statement: Those systems with pertinent positive or pertinent negative responses have been documented in the HPI. ROS Other: All systems not noted in ROS Statement are negative. Constitutional: Denies: fever Eyes: Denies: eye pain ENT: Denies: ear pain Respiratory: Reports: as per HPI Cardiovascular: Denies: chest pain Endocrine: Denies: fatigue Gastrointestinal: Denies: abdominal pain, vomiting Genitourinary: Denies: dysuria Musculoskeletal: Denies: back pain Skin: Denies: rash Neurological: Denies: headache Past Medical History Past Medical History: Asthma Additional Past Medical History / Comment(s): eczema, recent kidney and liver tests due to abnormal labs and pain. Celiac disease, endometreosis History of Any Multi-Drug Resistant Organisms: None Reported Past Surgical History: Adenoidectomy, Tonsillectomy Additional Past Surgical History / Comment(s): D&C Past Anesthesia/Blood Transfusion Reactions: No Reported Reaction Past Psychological History: Anxiety, Depression Smoking Status: Never smoker Past Alcohol Use History: None Reported Past Drug Use History: None Reported - Past Family History Mother Family Medical History: Thyroid Disorder Additional Family Medical History / Comment(s): Seema's disease. Father Family Medical History: Coronary Artery Disease (CAD) General Exam Limitations: no limitations General appearance: alert, in no apparent distress Head exam: Present: atraumatic Eye exam: Present: normal appearance ENT exam: Present: normal oropharynx, other (No signs of angioedema of the eyes or lips or tongue or throat.) Neck exam: Present: normal inspection Respiratory exam: Present: normal lung sounds bilaterally. Absent: respiratory distress, wheezes Cardiovascular Exam: Present: regular rate, normal rhythm GI/Abdominal exam: Present: soft. Absent: tenderness Extremities exam: Present: normal inspection. Absent: pedal edema, calf tenderness Neurological exam: Present: alert Psychiatric exam: Present: normal affect, normal mood Skin exam: Present: normal color. Absent: rash Course Vital Signs 04/08/19 22:14 Temperature 97.7 F Pulse Rate 96 Respiratory 18 Rate Blood Pressure 135/79 O2 Sat by Pulse 100 Oximetry Medical Decision Making - Medical Decision Making Patient reevaluated and feeling much better. comfortable with discharge. Disposition Clinical Impression: Allergic reaction Disposition: HOME SELF-CARE Condition: Stable Instructions (If sedation given, give patient instructions): Food Allergy (ED), Allergies (ED) Additional Instructions: Continue [id number] Claritin or Benadryl for the next 5 days. Return for difficulty in breathing, swelling of the lips or tongue or throat, worsening symptoms or any other concerns. Please follow-up with primary care physician in the next couple of days for recheck. Prescriptions: predniSONE 20 mg PO BID #10 tab Is patient prescribed a controlled substance at d/c from ED?: No Referrals: Ayden Woods MD [Primary Care Provider] - 1-2 days Time of Disposition: 23:50
[2019-04-08 23:58] VITALS: BP 126/70; PULSE 72; RESP 16
== END 2019-04-08 23:58 | disposition home or self-care (01) ==
LOC: EC 22:12
DX: T78.40XA Allergy, unspecified, initial encounter (principal); Z88.2 Allergy status to sulfonamides; Z88.0 Allergy status to penicillin; Z91.013 Allergy to seafood; Z91.018 Allergy to other foods; Z91.011 Allergy to milk products; Z91.010 Allergy to peanuts
CPT/HCPCS: 99283; 96374; 96375 ×2; J1200; J2930